=== PATIENT | female | born 1950 | race Caucasian/White ===

== ENCOUNTER 2021-11-08 03:22 | Emergency (ER) | payer MEDICARE, OTHER ==
[2021-11-08 03:31] VITALS: PULSE 77; RESP 22; TEMP 98.3
[2021-11-08] MEDS ORDERED: DIPH,PERTUS(ACELL)TETVAC-LF 0.5 ML VIAL IM ONE (04:23)
[2021-11-08] MEDS ORDERED: TOPICAL SKIN ADHESIVE 1 EACH AMP TOPICAL ONE (04:23)
--- NOTE | 2021-11-08 05:27 | ED ---
Head Injury HPI - General Chief complaint: Head Injury Stated complaint: Head Injury Time Seen by Provider: 11/08/21 04:14 Source: patient, family Mode of arrival: wheelchair Limitations: no limitations - History of Present Illness Complaint: head injury Onset/Timin -: hour(s) Mechanism of Injury: mechanical fall Location: face Loss of Consciousness: no Previous Trauma to this Area: No Place: home Severity: mild - Related Data Allergies/Adverse reactions: Allergies Allergy/AdvReac Type Severity Reaction Status Date / Time No Known Allergies Allergy Verified 11/08/21 03:31 Review of Systems ROS Statement: Those systems with pertinent positive or pertinent negative responses have been documented in the HPI. ROS Other: All systems not noted in ROS Statement are negative. Constitutional: Denies: fever Eyes: Denies: eye pain, vision change ENT: Denies: ear pain, epistaxis Respiratory: Denies: cough, dyspnea Cardiovascular: Denies: syncope Gastrointestinal: Denies: abdominal pain, vomiting Skin: Reports: as per HPI, other (Laceration) Neurological: Denies: headache Hematological/Lymphatic: Denies: easy bleeding Past Medical History Past Medical History: Diabetes Mellitus History of Any Multi-Drug Resistant Organisms: None Reported Additional Past Surgical History / Comment(s): kidney stone removed Past Psychological History: No Psychological Hx Reported Smoking Status: Never smoker Past Alcohol Use History: None Reported Past Drug Use History: None Reported General Exam Limitations: no limitations General appearance: alert, in no apparent distress Head exam: Present: normocephalic, other (There is an approximately 3 cm laceration to the left forehead.) Eye exam: Present: normal appearance, PERRL, EOMI. Absent: scleral icterus, conjunctival injection, nystagmus Neck exam: Present: normal inspection, full ROM. Absent: tenderness Neurological exam: Present: alert, oriented X3, CN II-XII intact. Absent: motor sensory deficit Skin exam: Present: warm, dry, normal color, other (Laceration as above) Course Vital Signs 11/08/21 03:25 Temperature 98.3 F Pulse Rate 77 Respiratory 22 Rate Blood Pressure 159/85 O2 Sat by Pulse 97 Oximetry Procedures - Laceration Laceration #1 Consent Obtained: verbal consent Indication: laceration Site: face Size (cm): 4 Description: linear Type of Sutures: other (Skin adhesive) Patient Tolerated Procedure: well, no complications Disposition Clinical Impression: Head injury, Face lacerations Disposition: HOME SELF-CARE Condition: Good Instructions (If sedation given, give patient instructions): Head Injury (DC), Facial Laceration (ED) Is patient prescribed a controlled substance at d/c from ED?: No Referrals: Nonstaff,Physician [Primary Care Provider] - 1-2 days
[2021-11-08 05:59] VITALS: BP 141/82
== END 2021-11-08 05:59 | disposition home or self-care (01) ==
LOC: EC 03:22
DX: S01.81XA Laceration without foreign body of other part of head, initial encounter (principal); S09.90XA Unspecified injury of head, initial encounter; E11.9 Type 2 diabetes mellitus without complications
CPT/HCPCS: 12013; 90471; 90715; 99283